=== PATIENT | female | born 1965 | race Caucasian/White ===

== ENCOUNTER → 2016-11-18 | Outpatient (CLI) | payer BC, OTHER ==
[~2016-11-18] MED LIST: ASCO10004 PO; ASPI-496 PO; CHOL5000 PO; GLUC1500 PO; LACT1CAP35 PO; LEVO125T PO; LEVO150T5 PO; LINA290C PO; LORA-439 PO; NAPR220T77 PO; NORT50CA PO; OMEP40CA6 PO; RIZA10TA34 PO; SENN1TAB67 PO; VITA150T PO
== END ==
LOC: STAR 08:14
PROVIDERS: ATTEND Orthopaedic Surgery
DX: Z02.9 Encounter for administrative examinations, unspecified (principal)

== ENCOUNTER 2016-11-27 10:18 | Day surgery (SDC) | payer BC, OTHER ==
[2016-11-18 11:08] VITALS: BP 151/97
[~2016-11-27] VITALS: Ht 157.5 cm; Wt 95.8 kg
[~2016-11-27 10:18] MED LIST changes: +CEFAZOLIN 1,000 MG ONE; +DEXAMETHASONE 4 MG/ML, 1ML ONE; +FENTANYL PF 100 MCG/2ML ONE; +GLYCOPYRROLATE 0.2MG/1ML, 5ML ONE; +MIDAZOLAM 1 MG/ML, 2ML ONE; +NEOSTIGMINE 1 MG/ML, 10ML ONE; +ONDANSETRON 2MG/ML, 2ML ONE; +PROPOFOL 10 MG/ML, 20ML ONE; +ROCURONIUM 10 MG/ML ONE; +SUCCINYLCHOLINE 20 MG/ML, 10ML ONE
[2016-11-27] MEDS ORDERED: BUPIVACAINE/PF 0.25% ONE ×2 (10:19)
[2016-11-27] MEDS ORDERED: LACTATED RINGERS 1,000 ML IV SCH (10:48)
[2016-11-27] MEDS ORDERED: LIDOCAINE 1%, 2ML SQ PRN (11:00)
[2016-11-27] MEDS ORDERED: LIDOCAINE GEL 2%, 5ML ONE (12:10)
[2016-11-27] MEDS ORDERED: HYDROcodone/APAP 7.5-325MG/15ML UDC PO PRN (12:30)
[2016-11-27] MEDS ORDERED: OXYcodone 5 MG/5 ML ORAL.SOL UDC PO PRN (12:30)
[2016-11-27] MEDS ORDERED: FENTANYL PF 100 MCG/2ML IV PRN (12:30)
[2016-11-27] MEDS ORDERED: HYDROmorphone 1 MG/ML, 1ML IV PRN (12:30)
[2016-11-27] MEDS ORDERED: HEPARIN 1,000 UNITS/ML, 30ML ONE (13:01)
[2016-11-27] MEDS ORDERED: HEPARIN 1,000 UNITS/ML, 10ML ONE (13:03)
[2016-11-27] MEDS ORDERED: BUPIVACAINE/PF 0.5% ONE (13:11)
[2016-11-27] MEDS ORDERED: FENTANYL PF 100 MCG/2ML ONE (13:58)
[2016-11-27] MEDS ORDERED: ACETAMINOPHEN 650 MG/20.3 ML UDC ONE (15:07)
[2016-11-27] MEDS ORDERED: OXYcodone 5 MG/5 ML ORAL.SOL UDC ONE (15:07)
== END 2016-11-27 17:35 ==
LOC: OUT 10:18
PROVIDERS: ATTEND Orthopaedic Surgery
DX: M24.575 Contracture, left foot (principal); M24.574 Contracture, right foot; M77.42 Metatarsalgia, left foot; M20.42 Other hammer toe(s) (acquired), left foot; M77.41 Metatarsalgia, right foot; M20.41 Other hammer toe(s) (acquired), right foot; M24.671 Ankylosis, right ankle; M21.6X1 Other acquired deformities of right foot; Z91.09 Other allergy status, other than to drugs and biological substances; Z88.6 Allergy status to analgesic agent; Z87.39 Personal history of other diseases of the musculoskeletal system and connective tissue; E03.9 Hypothyroidism, unspecified
CPT/HCPCS: 27635; 28120; 28285; 28309; 29898; C1713; C1760; C1762; J0330; J0690; J1100; J1644; J2250; J2405; J2704; J2710; J3010; J3490; J7120